=== PATIENT | female | born 1995 | race Caucasian/White ===

== ENCOUNTER 2018-09-23 09:37 | Day surgery (SDC) | payer OTHER ==
[~2018-09-23] VITALS: Ht 172.7 cm; Wt 79.4 kg
[2018-09-23] VITALS (8 sets, daily range): BP systolic 117–126; BP diastolic 67–78
[~2018-09-23 09:37] MED LIST: NKM; Proparacaine 0.5% Opth Soln 15ml RIGHT EYE SCH
[2018-09-23] MEDS ORDERED: Tropicamide 1% Opth 15ml Soln ONE (09:52)
[2018-09-23] MEDS ORDERED: Phenylephrine 2.5% Op 2ml Soln ONE (09:52)
[2018-09-23] MEDS ORDERED: Cyclopentolate 1% Opth Sol 2ml ONE (09:52)
[2018-09-23] MEDS ORDERED: Proparacaine 0.5% Opth Soln 15ml ONE (09:52)
[2018-09-23] MEDS: Phenylephrine 2.5% Op 2ml Soln RIGHT EYE SCH ×3 (10:19→10:48)
[2018-09-23] MEDS: Cyclopentolate 1% Opth Sol 2ml RIGHT EYE SCH ×3 (10:19→10:48)
[2018-09-23] MEDS: Tropicamide 1% Opth 15ml Soln RIGHT EYE SCH ×3 (10:19→10:48)
--- NOTE | 2018-09-23 10:20 | NUR ---
IV LR WAS STARTED BY ANNAMARIE WALLACE RN. NO S/S OF INFILTRATION.
[2018-09-23] MEDS ORDERED: Dexamethasone 4mg/ml vial ONE (10:45)
[2018-09-23] MEDS ORDERED: Pred Forte 1% Opth Susp 1ml ONE (10:45)
[2018-09-23] MEDS ORDERED: Povidone-Iodine 5% opth solution ONE (10:45)
[2018-09-23] MEDS ORDERED: Lidocaine 2% MPF 5ml Vial INJ ONE (10:45)
[2018-09-23] MEDS ORDERED: Maxitrol Opth Oint 3.5gm ONE (10:45)
[2018-09-23] MEDS ORDERED: EPINEPHrine 1mg/1ml Amp ONE (10:45)
[2018-09-23] MEDS ORDERED: Goniotaire 2.5% Opth Soln - 15ml ONE (10:45)
[2018-09-23] MEDS ORDERED: Kenalog-40 1ml Vial ONE (10:45)
[2018-09-23] MEDS ORDERED: BSS 15ml BTL ONE ×2 (10:45→12:20)
[2018-09-23] MEDS ORDERED: BSS 500ml btl ONE (10:45)
[2018-09-23] MEDS ORDERED: Tetracaine 0.5% Opth 4ml Soln ONE (10:45)
[2018-09-23] MEDS ORDERED: Bupivacaine 0.75% 30ml vial INJ ONE (10:46)
[2018-09-23] MEDS ORDERED: Sodium Hyaluronate 10 mg/ml 0.85ml ONE (10:46)
[2018-09-23] MEDS ORDERED: Midazolam 2mg/2ml Inj ONE (11:27)
[2018-09-23] MEDS ORDERED: fentaNYL 100 mcg/2 mL IV ONE (11:27)
[2018-09-23] MEDS ORDERED: Ketorolac 30mg Inj ONE (11:28)
[2018-09-23] MEDS ORDERED: Lidocaine 1% MPF 10mg/ml 5ml ONE (11:28)
[2018-09-23] MEDS ORDERED: Propofol 200mg/20ml IV ONE (11:28)
[2018-09-23] MEDS ORDERED: LR 1000ml ONE (11:30)
[2018-09-23] MEDS ORDERED: NS Irrig 1000ml ONE (11:30)
[2018-09-23] MEDS ORDERED: Sterile Water Irrig 1000ml IRRIG ONE (11:30)
[2018-09-23] MEDS ORDERED: TransDerm Scop 1mg/72HR Patch TDERMAL ONE ×2 (11:33→12:30)
--- NOTE | 2018-09-23 12:02 | Pre-Procedure Note/Attestation ---
Pre-Procedure Note/Attestation Complete Prior to Procedure Planned Procedure: right Procedure Narrative: RD OD Indications for Procedure Pre-Operative Diagnosis: RD OD Attestation I attest that I discussed the nature of the procedure; its benefits; risks and complications; and alternatives (and the risks and benefits of such alternatives ), prior to the procedure, with the patient (or the patient's legal mechanical service representative). I attest that, if there was a reasonable possibility of needing a blood transfusion, the patient (or the patient's legal mechanical service representative) was given the [facility] standardized written summary, pursuant to the [place] Blood Safety Act ([place] Health and Safety Code # 1645, as amended). I attest that I re-evaluated the patient just prior to the surgery and that there has been no change in the patient's H&P, except as documented below: Daniele Zarate M.D., MD September 23, 2018 12:02
--- NOTE | 2018-09-23 12:03 | Operative Note - PDOC ---
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 She presents for surgery after review of the risks, benefits, alternative and signing informed consent into the medical chart. Description of Procedure Procedure performed: The patient was met in the pre-op area where informed consent was reviewed. The operative eye was verified, marked and dilated. The patient was transferred to the operative suite, where cardiopulmonary monitoring was established and general anesthesia was administered without complications. The eye was prepped and draped in sterile ophthalmic fashion. A lid speculum was placed. Under direct visualization, the conjunctiva was opened and the quadrants were dissected. The rectus muscles were isolated and hooked with silk sutures. The quadrants were inspected and no scleral defects were noted. The 270 band was encircled around the globe with its ends attached in the superonasal quadrant with the 70 sleeve. The retinal was examined and two holes along with the ST area of lattice were treated with light cryo. The posterior aspect of the break was marked. The buckle was sutured to the sclera with 5-0 nylon sutures at 4mm posterior to the muscle insertions in all 4 quadrants with a sponge placed temporally from 7-11 oclock. The buckle was meticulously positioned to cover the area of lattice ST, holes at 9 and area of CR scar at 11. The buckle was pulled flush against the globe, then beyond flush to adequate indentation ; the position was confirmed. The anterior chamber was tapped to reduce the intraocular pressure. The buckle ends were trimmed. The eye maintained normal intraocular pressure. The stay sutures were removed, the conjunctiva was repositioned and closed with 5-0 plain gut sutures. Subconjunctival vancomycin and dexamethasone were administered. The lid speculum was removed. The eye was cleaned of prep and drape. Atropine drop and Maxitrol ointment was applied. A pressure patch was placed. The patient was turned over to the anesthesia team, extubated and transferred in stable condition to the PACU Daniele Zarate M.D., MD September 23, 2018 12:03
[2018-09-23] MEDS ORDERED: LR 1000ml 1,000 ML IVLG SCH (12:17)
--- NOTE | 2018-09-23 12:17 | Anethesia Preoperative Eval ---
Anesthesia Pre-op PMH/ROS General Date of Evaluation: September 23, 2018 Time of Evaluation: 11:22 Anesthesiologist: deedee ASA Score: ASA 2 Mallampati Score Class I : Soft palate, uvula, fauces, pillars visible Class II: Soft palate, uvula, fauces visible Class III: Soft palate, base of uvula visible Class IV: Only hard plate visible Mallampati Classification: Class II Surgeon: James Diagnosis: R eye retnal detouchment Surgical Procedure: R eye scleral buckle Anesthesia History: none Family History: no anesthesia problems Allergies: Coded Allergies: No Known Allergies (Unverified , 09/22/18) Medications: see eMAR Patient NPO?: Yes Past Medical History Cardiovascular: Denies: HTN, CAD, [place], valve dz, arrhythmia, other Pulmonary: Denies: asthma, COPD, CHANDRAKANT, other Gastrointestinal/Genitourinary: Reports: GERD - mild; Denies: CRI, ESRD, other Neurologic/Psychiatric: Denies: dementia, CVA, depression/anxiety, TIA, other Endocrine: Denies: DM, hypothyroidism, steroids, other HEENT: Denies: cataract (L), cataract (R), glaucoma, SAV[place]ONGA (L), SAVOONGA (R), other Hematology/Immune: Denies: anemia, DVT, bleeding disorder, other Musculoskeletal/Integumentary: Denies: OA, RA, DJD, DDD, edema, other PMH Narrative: as above PSxH Narrative: Arm ORIF Anesthesia Pre-op Phys. Exam Physician Exam Last Vital Signs Date Time Temp Pulse Resp B/P (MAP) Pulse Ox O2 Delivery O2 Flow Rate FiO2 09/23/18 10:24 98.2 68 20 126/71 97 Room Air Constitutional: NAD Neurologic: CN 2-12 intact Cardiovascular: RRR, no M/R/G Respiratory: CTA Gastrointestinal: S/NT/ND Airway Exam Mallampati Score: Class II MO: full Neck: flexible ROM: full Teeth: intact Dentures: no upper, no lower Anesthesia Pre-op A/P Labs see chart Urine Test Test 09/23/18 09:50 Urine HCG, Qualitative Negative (NEGATIVE) Studies Pre-op Studies: EKG - NSR Risk Assessment & Plan Assessment: ASA 2 Plan: GA wth LMA, ONV prevention Status Change Before Surgery: No Deedee,Lam MD September 23, 2018 12:17
[2018-09-23] MEDS ORDERED: DiphenhydrAMINE 50mg/ml Inj IVP PRN (12:30)
[2018-09-23] MEDS ORDERED: Metoclopramide 10mg/2ml Inj IVP PRN (12:30)
[2018-09-23] MEDS ORDERED: Ketorolac 30mg Inj IV PRN (12:30)
[2018-09-23] MEDS ORDERED: Meperidine 50mg/ml Inj(FOR RIGORS ONLY) IV PRN (12:30)
--- NOTE | 2018-09-23 13:40 | Immediate Post-Op Evaluation ---
Immediate Post-Op Evalulation Immediate Post-Op Evalulation Procedure: R eye scleral buckle, cryotherapy Date of Evaluation: September 23, 2018 Time of Evaluation: 13:39 IV Fluids: 1000 Blood Products: none Estimated Blood Loss: min Urinary Output: none Blood Pressure Systolic: 126 Blood Pressure Diastolic: 67 Pulse Rate: 81 Respiratory Rate: 20 O2 Sat by Pulse Oximetry: 98 Temperature (Fahrenheit): 97.8 Pain Score (1-10): 1 Nausea: No Vomiting: No Complications none Patient Status: reacts, patent, none Hydration Status: adequate Lam Mark MD September 23, 2018 13:40
--- NOTE | 2018-09-23 14:28 | 48 Hour Post Anesthesia Eval ---
Post Anesthesia Evaluation Procedure: R eye scleral buckle, cryotherapy Date of Evaluation: September 23, 2018 Time of Evaluation: 14:27 Blood Pressure Systolic: 124 0: 76 Pulse Rate: 68 Respiratory Rate: 20 Temperature (Fahrenheit): 97.6 O2 Sat by Pulse Oximetry: 98 Airway: patent Nausea: No Vomiting: No Pain Intensity: 1 Hydration Status: adequate Cardiopulmonary Status: stable Mental Status/LOC: patient returned to baseline Follow-up Care/Observations: n/a Post-Anesthesia Complications: none Follow-up care needed: ready to discharge Lam Mark MD September 23, 2018 14:28
== END 2018-09-23 14:50 | disposition home or self-care (01) ==
LOC: SUR 09:37 → EDBD 11:30 → SUR 14:50
DX: H33.41 Traction detachment of retina, right eye (principal); K21.9 Gastro-esophageal reflux disease without esophagitis
CPT/HCPCS: 67107; 81025; J1100; J1885; J2250; J2405; J2704; J3010; J3370; J3490; 94003; 94150